=== PATIENT | male | born 1990 | race African-American/Black ===

== ENCOUNTER 2023-07-03 00:49 | Emergency (ER) | payer SELFPAY ==
[2023-07-03 00:54] VITALS: BP 166/95; PULSE 47; TEMP 36.5; O2SAT 100; BMI 33.1
[2023-07-03 00:59] VITALS: PULSE 45
--- NOTE | 2023-07-03 01:06 | CT_ITS ---
[address] [address] Patient Name: LISA GERMAIN MRN: [id number] date: 1990 Sex: M Assigned Patient Location: ER Current Patient Location: ER Accession/Order Number: [id number] Exam Date: 07/03/2023 01:28 Report Date: 07/03/2023 02:21 At the request of: LEIGH RUSSELL Procedure: CT abdomen pelvis w con EXAM: CT ABDOMEN PELVIS W CON HISTORY: Diffuse abdominal pain. COMPARISON: None. TECHNIQUE: Multiple axial CT images of the abdomen and pelvis were performed with IV contrast. 2D coronal and sagittal reformations were submitted for review. Dose reduction techniques were achieved by using automated exposure control and/or adjustment of mA and/or kV according to patient size and/or use of iterative reconstruction technique. FINDINGS: LUNGS: Mild streak-like bibasilar atelectasis. No pleural effusion. ABDOMINAL AORTA: No aortic aneurysm identified. LYMPH NODES: No retroperitoneal, mesenteric or pelvic lymphadenopathy. LIVER: Liver contour appears smooth. No focal liver parenchymal mass identified. BILIARY TREE AND GALLBLADDER: No intrahepatic or extrahepatic bile duct dilatation. Gallbladder is fluid distended without calcified gallstones. PANCREAS: Normal in size without masses or ductal dilatation. No peripancreatic inflammatory changes. SPLEEN: Normal in size without focal lesions. ADRENAL GLANDS: Normal bilaterally, without nodules. KIDNEYS/URINARY BLADDER: Kidneys enhance in a symmetric fashion. Partially duplicated left renal collecting system. Low-density cyst at the inferior pole of the left kidney measures 0.6 cm. No KUB stones or hydronephrosis identified. The urinary bladder appears unremarkable. GASTROINTESTINAL TRACT: Scattered fluid throughout nondilated small bowel. The stomach and duodenum appears unremarkable. No bowel obstruction. Appendix appears normal. PERITONEAL CAVITY AND SURFACES: No free fluid. No free intraperitoneal air. REPRODUCTIVE ORGANS: Prostate gland appears unremarkable. ABDOMINAL WALL: Noninflamed fat-containing umbilical hernia. OSSEOUS STRUCTURES: No aggressive appearing osseous lesions. No compression fracture is identified. Mild bilateral SI joint osteoarthritis. CT/CT abdomen pelvis w con IMPRESSION: 1. Scattered fluid throughout nondilated small bowel suggests enteritis or ileus. No bowel obstruction. 2. Normal CT appearance of the appendix. Electronically authenticated by: LILIANA NEGRETE Date: 07/03/2023 02:21
--- NOTE | 2023-07-03 01:06 | ECG_ITS ---
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
--- NOTE | 2023-07-03 01:07 | ED.ABDPAIN1 ---
HPI - Abdominal Pain General Chief Complaint: Abdominal Pain Stated Complaint: abd pain Time Seen by Provider: 07/03/23 00:53 Source: patient Mode of arrival: walk-in Limitations: no limitations History of Present Illness HPI narrative: 32-year-old male presents for diffuse abdominal pain which she has had for more than 24 hours. The previous day he started a dietary supplement and he took 1 capsule in the morning and 1 at night and in the evening his pain started. He threw up. No constipation or diarrhea or blood in the stool or hematemesis. Pain is continuous and moderate. Related Data Previous Rx's ?Medication ?Instructions ?Recorded dicyclomine 10 mg capsule 10 mg PO QID PRN abdominal pain 07/03/23 #20 caps ondansetron 4 mg disintegrating 4 mg PO Q6H PRN nausea and 07/03/23 tablet vomiting #20 tabs Allergies Allergy/AdvReac Type Severity Reaction Status Date / Time No Known Drug Allergies Allergy Verified 07/03/23 00:59 Review of Systems ROS Narrative A ten point review of systems is negative except as noted above. Exam Narrative Exam Narrative: Nurses note and vital signs reviewed and patient is not hypoxic. General: The patient appears well and in no apparent distress. Patient is resting comfortably on cart. Skin: Warm, dry, no pallor noted. There is no rash noted. Head: Normocephalic, atraumatic Eye: Normal conjunctiva, no drainage Ears, Nose, Mouth, and Throat: oral mucosa is moist. Nares patent. Cardiovascular: Regular Rate and Rhythm Respiratory: Patient is in no distress, no accessory muscle use, lungs are clear to auscultation, no wheezing, rales or rhonchi Back: non-tender GI: No distention or mass. He has mild diffuse tenderness. Musculoskeletal: The patient has no evidence of calf tenderness, no pitting edema, symmetrical pulses noted bilaterally Neurological: A&O, normal speech Psychiatric: Cooperative Constitutional Vital Signs, click to edit/add: Last Vital Signs Temp 97.7 F 07/03/23 00:54 Pulse 50 L 07/03/23 02:09 Resp 16 07/03/23 02:09 BP 156/93 H 07/03/23 02:09 Pulse Ox 99 07/03/23 02:09 O2 Del Method Room Air 07/03/23 02:09 Course Vital Signs Vital signs: Vital Signs Temperature 97.7 F 07/03/23 00:54 Pulse Rate 47 L 07/03/23 00:54 Respiratory Rate 16 07/03/23 00:54 Blood Pressure 166/95 H 07/03/23 00:54 Pulse Oximetry 100 07/03/23 00:54 Oxygen Delivery Method Room Air 07/03/23 00:54 Temperature 97.7 F 07/03/23 00:54 Pulse Rate 50 L 07/03/23 02:09 Respiratory Rate 16 07/03/23 02:09 Blood Pressure 156/93 H 07/03/23 02:09 Pulse Oximetry 99 07/03/23 02:09 Oxygen Delivery Method Room Air 07/03/23 02:09 MDM - Abdominal Pain MDM Narrative Medical decision making narrative: CAT scan is consistent with enteritis. Blood work is essentially normal. He will be treated symptomatically and discharged home. Treatment diagnosis and follow-up were discussed with the patient. Differential Diagnosis Differential diagnosis: Likely abdominal pain, acute appendicitis, constipation, diverticulitis, gastroenteritis, pancreatitis and small bowel obstruction Lab Data Attestation: I reviewed the patient's lab results. Labs: Lab Results 07/03/23 07/03/23 07/03/23 Range/Units 01:15 02:00 02:04 WBC 9.0 (4.0-11.0) 10^3/uL RBC 4.80 (4.70-6.10) 10^6/uL Hgb 13.9 L (14.0-18.0) g/dL Hct 41.9 L (42.0-54.0) % MCV 87.3 (80.0-94.0) fL MCH 29.0 (25.9-34.0) pg MCHC 33.2 (29.9-35.2) g/dL RDW 11.7 (11.0-15.0) % Plt Count 317 (150-450) 10^3/uL MPV 11.8 (9.5-13.5) fL Neut % (Auto) 59.7 (43.0-75.0) % Lymph % (Auto) 24.0 (20.5-60.0) % [place] % (Auto) 10.6 (1.7-12.0) % Eos % (Auto) 5.3 (0.9-7.0) % Baso % (Auto) 0.3 (0.2-2.0) % Neut # (Auto) 5.4 (1.4-6.5) 10^3/uL Lymph # (Auto) 2.2 (1.2-3.8) 10^3/uL [place] # (Auto) 1.0 H (0.3-0.8) 10^3/uL Eos # (Auto) 0.5 (0.0-0.7) 10^3/uL Baso # (Auto) 0.0 (0.0-0.1) 10^3/uL Abs Immat Gran (auto) 0.01 (0.00-0.03) 10^3/uL Imm/Tot Granulo (auto) 0.1 (0.0-0.5) % Sodium 139 (136-145) mmol/L Potassium 4.2 (3.5-5.1) mmol/L Chloride 101 (98-107) mmol/L Carbon Dioxide 30.7 (21.0-32.0) mmol/L Anion Gap 11.5 BUN 9.0 (7.0-18.0) mg/dL Creatinine 0.80 (0.70-1.30) mg/dL Est GFR ( Amer) >60 (>=60) Est GFR (Non-Af Amer) >60 (>=60) BUN/Creatinine Ratio 11.2 Glucose 109 H (74-106) mg/dL Calcium 9.5 (8.5-10.1) mg/dL Total Bilirubin 0.3 (0.2-1.0) mg/dL Direct Bilirubin 0.1 (0.0-0.2) mg/dL AST 25 (15-37) U/L ALT 38 (16-63) U/L Alkaline Phosphatase 56 (46-116) U/L Total Protein 7.4 (6.4-8.2) g/dL Albumin 3.9 (3.4-5.0) g/dL Globulin 3.5 g/dL Albumin/Globulin Ratio 1.1 Amylase 79 (25-115) U/L Lipase 39.0 (16.0-77.0) U/L Urine Color Lt. yellow (YELLOW) Urine Clarity Clear (CLEAR) Urine pH 7.5 (5.0-9.0) Ur Specific [place] 1.010 (1.005-1.025) Urine Protein Negative (NEG/TRACE) mg/dL Urine Glucose (UA) Negative (NEGATIVE) mg/dL Urine Ketones Negative (NEGATIVE) mg/dL Urine Occult Blood Negative (NEGATIVE) Urine Nitrite Negative (NEGATIVE) Urine Bilirubin Negative (NEGATIVE) Urine Urobilinogen 0.2 (0.2-1.0) EU/dL Ur Leukocyte Esterase Negative (NEGATIVE) Urine RBC None seen (0-2) #/HPF Urine WBC None seen (NONE SEEN) #/HPF Ur Squamous Epith Cells None seen (NONE/RARE) #/LPF Urine Crystals None seen (None Seen) #/HPF Urine Bacteria None seen (NONE SEEN) #/HPF Urine Casts None seen (NONE SEEN) #/LPF Urine Mucus None seen (NONE SEEN) Ur Culture Indicated? No Imaging Data CT scan - abdomen: Radiologist's impression: ITS Impressions Abdomen/Pelvis CT 07/03/23 01:06 IMPRESSION: 1. Scattered fluid throughout nondilated small bowel suggests enteritis or ileus. No bowel obstruction. 2. Normal CT appearance of the appendix. Electronically authenticated by: LILIANA NEGRETE Date: 07/03/2023 02:21 Discharge Plan Discharge Stand Alone Forms: Portal Instructions Chief Complaint: Abdominal Pain Clinical Impression: Enteritis Patient Disposition: Home, Self-Care Time of Disposition Decision: 03:06 Condition: Good Mode of Transportation: Private Vehicle Prescriptions / Home Meds: New dicyclomine 10 mg capsule 10 mg PO QID PRN (Reason: abdominal pain) Qty: 20 0RF ondansetron 4 mg tablet,disintegrating 4 mg PO Q6H PRN (Reason: nausea and vomiting) Qty: 20 0RF Print Language: Czech Instructions: Enteritis (ED) Referrals: Physician,Non-Staff, MD [Primary Care Provider] - 1 week
[2023-07-03 01:34] VITALS: PULSE 45
[2023-07-03 01:35] LABS: Basophils Percent Auto 0.3 % (0.2-2.0); Eosinophils Absolute Auto 0.5 10^3/uL (0.0-0.7); Eosinophils Percent Auto 5.3 % (0.9-7.0); Hematocrit 41.9 % (42.0-54.0); Hemoglobin 13.9 g/dL (14.0-18.0); Immature Granulocytes Abs Auto 0.01 10^3/uL (0.00-0.03); Immature Granulocytes Pct Auto 0.1 % (0.0-0.5); Lymphocytes Absolute Auto 2.2 10^3/uL (1.2-3.8); Mean Corpuscular HGB Conc 33.2 g/dL (29.9-35.2); Mean Corpuscular Volume 87.3 fL (80.0-94.0); Mean Platelet Volume 11.8 fL (9.5-13.5); Monocytes Percent Auto 10.6 % (1.7-12.0); Neutrophils Absolute Auto 5.4 10^3/uL (1.4-6.5); Neutrophils Percent Auto 59.7 % (43.0-75.0); Platelet Count 317 10^3/uL (150-450); Red Cell Distribution Width 11.7 % (11.0-15.0)
[2023-07-03] MEDS: 0.9 % SODIUM CHLORIDE 1,000 ML 1000 ML IV (01:48)
[2023-07-03 02:09] VITALS: BP 156/93; PULSE 50; O2SAT 99
[2023-07-03 02:20] LABS: Bilirubin Urine NEGATIVE (NEGATIVE); Blood Urine NEGATIVE (NEGATIVE); Clarity Urine CLEAR (CLEAR); Color Urine LT. YELLOW (YELLOW); Glucose Urine UA NEGATIVE (NEGATIVE); Ketones Urine NEGATIVE (NEGATIVE); Leukocyte Esterase Urine NEGATIVE (NEGATIVE); Nitrite Urine NEGATIVE (NEGATIVE); Protein Urine NEGATIVE (NEG/TRACE); Urobilinogen Urine 0.2 EU/dL (0.2-1.0); pH Urine 7.5 (5.0-9.0)
[2023-07-03 02:27] LABS: Bacteria Urine NONE SEEN #/HPF (NONE SEEN); Mucus Urine NONE SEEN (NONE SEEN); RBC Urine NONE SEEN #/HPF (0-2); Squamous Epithelial Cell Urine NONE SEEN #/LPF (NONE/RARE); WBC Urine NONE SEEN #/HPF (NONE SEEN)
[2023-07-03 02:28] LABS: Cast Seen? NONE SEEN #/LPF (NONE SEEN); Crystals Seen? None Seen #/HPF (None Seen); Urine Culture Indicated NO
[2023-07-03 02:33] LABS: Alanine Aminotransferase 38 U/L (16-63); Albumin Globulin Ratio 1.1; Albumin Level 3.9 g/dL (3.4-5.0); Alkaline Phosphatase 56 U/L (46-116); Amylase 79 U/L (25-115); Anion Gap 11.5; Aspartate Amino Transferase 25 U/L (15-37); BUN Creatinine Ratio 11.2; Bilirubin Direct 0.1 mg/dL (0.0-0.2); Bilirubin Total 0.3 mg/dL (0.2-1.0); Calcium 9.5 mg/dL (8.5-10.1); Carbon Dioxide 30.7 mmol/L (21.0-32.0); Chloride 101 mmol/L (98-107); Estimated GFR (African America >60 (>=60); Estimated GFR (Non-African Ame >60 (>=60); Globulin 3.5 g/dL; Glucose 109 mg/dL (74-106); Potassium 4.2 mmol/L (3.5-5.1); Sodium 139 mmol/L (136-145); Total Protein 7.4 g/dL (6.4-8.2)
[2023-07-03] MEDS: ONDANSETRON PF 4 MG/2 ML VIAL IV (03:21)
[2023-07-03] MEDS: DICYCLOMINE HCL 20 MG/2 ML VIAL IM (03:21)
[2023-07-03 03:35] VITALS: BP 149/106; PULSE 44; O2SAT 100
== END 2023-07-03 03:40 | disposition home or self-care (01) ==
PROVIDERS: Emergency Provider Emergency Medicine
DX: K52.9 Noninfective gastroenteritis and colitis, unspecified (principal)
CPT/HCPCS: 36415; 74177; 80048; 80076; 81001; 82150; 83690; 85025; 93005; 96372; 96374; 99285; J0500; Q9967

== ENCOUNTER 2023-09-13 17:03 | Emergency (ER) | payer SELFPAY ==
[2023-09-13 17:11] VITALS: BP 156/78; PULSE 90; O2SAT 97; BMI 33.9
--- NOTE | 2023-09-13 17:13 | CT_ITS ---
[facility] [address] 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 TECHNIQUE: CT neck with contrast. Axial scans with reformatted coronal sagittal images. Individualized dose reduction used for this exam. FINDINGS: Bilateral cervical adenopathy noted most extensive on the left. Largest lymph node level 2 lymph node 1.6 cm short axis. Lymph nodes enlarged throughout the left neck extending into the supraclavicular area where increased number of smaller lymph nodes are seen. Tonsils are prominent bilaterally without fluid or or abscess. Normal epiglottis. No significant airway encroachment. Normal prevertebral soft tissues. Normal-appearing parotid and submandibular glands. Normal symmetric tissues in the tongue. Lower neck demonstrates homogeneous thyroid enhancement. Normal larynx. Normal vascular enhancement. Visualized brain orbital tissues unremarkable. Mastoid middle ear cavities sinuses clear. No bone lesion. Lung apices clear.. CT/CT soft tissue neck w con IMPRESSION: 1. Bilateral cervical adenopathy more extensive on the left. Homogeneous nodes evidence with smooth margins may be reactive lymph nodes. 2. Bilateral tonsillar prominence without fluid or abscess. Electronically authenticated by: ELAINE WILSON Date: 09/13/2023 20:15
[2023-09-13] MEDS: DEXAMETHASONE SOD PHOS 10 MG/ML VIAL IV (17:29)
[2023-09-13] MEDS: 0.9 % SODIUM CHLORIDE 1,000 ML 1000 ML IV (17:29)
[2023-09-13] MEDS: KETOROLAC TROMETHAMINE 30 MG/ML VIAL IVP (17:29)
[2023-09-13 17:44] LABS: Hematocrit 39.3 % (42.0-54.0); Hemoglobin 13.6 g/dL (14.0-18.0); Mean Corpuscular HGB Conc 34.6 g/dL (29.9-35.2); Mean Corpuscular Hemoglobin 29.4 pg (25.9-34.0); Mean Corpuscular Volume 84.9 fL (80.0-94.0); Mean Platelet Volume 10.8 fL (9.5-13.5); Platelet Count 307 10^3/uL (150-450); Red Blood Count 4.63 10^6/uL (4.70-6.10); Red Cell Distribution Width 11.6 % (11.0-15.0); White Blood Count 28.9 10^3/uL (4.0-11.0)
--- NOTE | 2023-09-13 17:45 | ED.GENADUL1 ---
Documented by User: Mallorie Albert DO 09/13/23 17:47 HPI HPI - General Adult General Chief complaint: Upper Respiratory Infection Stated complaint: SORE THROAT Time Seen by Provider: 09/13/23 17:04 Source: patient Mode of arrival: walk-in Limitations: no limitations History of Present Illness HPI narrative: Patient presents ED complaining of sore throat that is worse on the left side for the past 2 days. He said it is difficult to swallow and he has a lot of pain with swallowing and states that he cannot really swallow that well. He says it feels very swollen. He denies fever. He did report an upset stomach but no cough. He denies exposure to any sort of allergen. He reports that hurts to swallow and it hurts to talk. Vital signs stable no stridor or wheezing. Related Data Home Medications ?Medication ?Instructions ?Recorded ?Confirmed No Known Home Medications 09/13/23 09/13/23 Allergies Allergy/AdvReac Type Severity Reaction Status Date / Time No Known Drug Allergies Allergy Verified 07/03/23 00:59 Opioid HPI Opioid Management Most Recent Opioid Data: Last Pain Scale 5 09/13/23 19:24 Last ED Pain Assessment 09/13/23 19:24 Last MAR Pain Assessment 09/13/23 17:29 Review of Systems ROS Status of ROS 10 or more systems reviewed and unremarkable except as noted in history and below Exam Narrative Exam Narrative: General: alert, no acute distress Cardiovascular: regular rate and rhythm, normal peripheral perfusion. Respiratory: Lungs CTA, respirations non labored. Extremities: no deformity, no trauma. Neurological: oriented x 4, LOC appropriate for age. Posterior pharynx reveals Asymmetrical swelling with the left posterior pharynx being larger and boggy here than the right. No trismus no drooling no stridor. Patient has tender cervical lymphadenopathy worse on the left. Posterior pharynx is erythematous worse on the left Constitutional Vital Signs, click to edit/add: Last Vital Signs Temp 99.4 F 09/13/23 19:28 Pulse 80 09/13/23 20:14 Resp 16 09/13/23 20:14 BP 126/62 09/13/23 20:14 Pulse Ox 98 09/13/23 20:14 O2 Del Method Room Air 09/13/23 20:14 Course Vital Signs Vital signs: Vital Signs Pulse Rate 90 09/13/23 17:11 Respiratory Rate 18 09/13/23 17:11 Blood Pressure 156/78 H 09/13/23 17:11 Pulse Oximetry 97 09/13/23 17:11 Oxygen Delivery Method Room Air 09/13/23 17:11 Temperature 99.4 F 09/13/23 19:28 Pulse Rate 80 09/13/23 20:14 Respiratory Rate 16 09/13/23 20:14 Blood Pressure 126/62 09/13/23 20:14 Pulse Oximetry 98 09/13/23 20:14 Oxygen Delivery Method Room Air 09/13/23 20:14 Medical Decision Making Lab Data Labs: Lab Results 09/13/23 09/13/23 Range/Units 17:19 17:26 WBC 28.9 H (4.0-11.0) 10^3/uL RBC 4.63 L (4.70-6.10) 10^6/uL Hgb 13.6 L (14.0-18.0) g/dL Hct 39.3 L (42.0-54.0) % MCV 84.9 (80.0-94.0) fL MCH 29.4 (25.9-34.0) pg MCHC 34.6 (29.9-35.2) g/dL RDW 11.6 (11.0-15.0) % Plt Count 307 (150-450) 10^3/uL MPV 10.8 (9.5-13.5) fL Seg Neuts % (Manual) 86.0 Lymphocytes % (Manual) 3.0 L (20.5-60.0) % Monocytes % (Manual) 11.0 (1.7-12.0) % Eosinophils % (Manual) 0.0 L (0.9-7.0) % Basophils % (Manual) 0.0 L (0.2-2.0) % Neutrophils # (Manual) 24.85 H (1.4-6.5) 10^3/uL Lymphocytes # (Manual) 0.86 L (1.20-3.80) 10^3/uL Monocytes # (Manual) 3.17 H (0.30-0.80) 10^3/uL Eosinophils # (Manual) 0.00 (0.00-0.70) 10^3/uL Basophils # (Manual) 0.00 (0.00-0.10) 10^3/uL Anisocytosis 1+ Microcytosis 1+ Sodium 136 (136-145) mmol/L Potassium 3.6 (3.5-5.1) mmol/L Chloride 99 (98-107) mmol/L Carbon Dioxide 29.7 (21.0-32.0) mmol/L Anion Gap 10.9 BUN 10.0 (7.0-18.0) mg/dL Creatinine 1.14 (0.70-1.30) mg/dL Est GFR ( Amer) >60 (>=60) Est GFR (Non-Af Amer) >60 (>=60) BUN/Creatinine Ratio 8.8 Glucose 109 H (74-106) mg/dL Lactate 1.3 (0.4-2.0) mmol/L Calcium 8.9 (8.5-10.1) mg/dL Total Bilirubin 1.0 (0.2-1.0) mg/dL AST 17 (15-37) U/L ALT 29 (16-63) U/L Alkaline Phosphatase 56 (46-116) U/L Total Protein 7.8 (6.4-8.2) g/dL Albumin 4.0 (3.4-5.0) g/dL Globulin 3.8 g/dL Albumin/Globulin Ratio 1.1 SARS-CoV-2 Ag (CV2AG) Negative (NEGATIVE) Streptococcus Screen Negative Discharge Plan Discharge Stand Alone Forms: Portal Instructions Chief Complaint: Upper Respiratory Infection Clinical Impression: Acute tonsillitis Patient Disposition: Home, Self-Care Time of Disposition Decision: 20:28 Condition: Good Prescriptions / Home Meds: No Action No Known Home Medications Print Language: Tuvaluan Referrals: Physician,Non-Staff, [Primary Care Provider] - 1 week Documented by User: Marilyn Farrell MD 09/13/23 20:30 HPI HPI - General Adult General Chief complaint: Upper Respiratory Infection Stated complaint: SORE THROAT Time Seen by Provider: 09/13/23 17:04 Related Data Home Medications ?Medication ?Instructions ?Recorded ?Confirmed No Known Home Medications 09/13/23 09/13/23 Allergies Allergy/AdvReac Type Severity Reaction Status Date / Time No Known Drug Allergies Allergy Verified 07/03/23 00:59 Opioid HPI Opioid Management Most Recent Opioid Data: Last Pain Scale 5 09/13/23 19:24 Last ED Pain Assessment 09/13/23 19:24 Last MAR Pain Assessment 09/13/23 17:29 Exam Constitutional Vital Signs, click to edit/add: Last Vital Signs Temp 99.4 F 09/13/23 19:28 Pulse 80 09/13/23 20:14 Resp 16 09/13/23 20:14 BP 126/62 09/13/23 20:14 Pulse Ox 98 09/13/23 20:14 O2 Del Method Room Air 09/13/23 20:14 Course Vital Signs Vital signs: Vital Signs Pulse Rate 90 09/13/23 17:11 Respiratory Rate 18 09/13/23 17:11 Blood Pressure 156/78 H 09/13/23 17:11 Pulse Oximetry 97 09/13/23 17:11 Oxygen Delivery Method Room Air 09/13/23 17:11 Temperature 99.4 F 09/13/23 19:28 Pulse Rate 80 09/13/23 20:14 Respiratory Rate 16 09/13/23 20:14 Blood Pressure 126/62 09/13/23 20:14 Pulse Oximetry 98 09/13/23 20:14 Oxygen Delivery Method Room Air 09/13/23 20:14 Medical Decision Making MDM Narrative Medical decision making narrative: This 32-year-old male was signed out to me at shift change. He presents for evaluation of a sore throat for the past several days. The patient was formally in [place] and recently relocated to the [facility]. He does not have a local family physician. On physical exam he was noted to have boggy tonsils with no yvonne abscess appreciated. He is not having any difficulty tolerating his secretions or speaking. He does have some anterior cervical lymphadenopathy with no nuchal rigidity. She had been medicated with Toradol, Decadron and Unasyn prior to my arrival. He was seen and evaluated. He is resting comfortably but extremely diaphoretic. I reviewed his labs. He has a markedly elevated white count. Comprehensive metabolic profile is normal. CT scan of the neck with IV contrast does not show any peritonsillar abscess but does show bilateral tonsillar prominence and bilateral cervical lymphadenopathy which appears reactive according to the radiologist read. He was given an additional dose of IV clindamycin in the emergency department. The results of the CT scan was discussed with the patient. He states he is feeling better after his treatment. He will be discharged home with prescription for a Medrol Dosepak and clindamycin and referral to outpatient family medicine. I did instruct him to return to the emergency department if he should develop a large swelling in his tonsillar area that could be an abscess or he has difficulty breathing or swallowing. He is drinking apple juice without difficulty, speech is clear and he is not having any difficulty tolerating the juice or his secretions. Medical Records Medical records narrative: [place] [address] CT Scan Report Signed Patient: LISA GERMAIN MR#: [id number] : 1990 Acct:[id number] Age/Sex: 32 / M ADM Date: 09/13/23 Loc: ER Attending Dr: Ordering Physician: Mallorie Albert D.O. 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 TECHNIQUE: CT neck with contrast. Axial scans with reformatted coronal sagittal images. Individualized dose reduction used for this exam. FINDINGS: Bilateral cervical adenopathy noted most extensive on the left. Largest lymph node level 2 lymph node 1.6 cm short axis. Lymph nodes enlarged throughout the left neck extending into the supraclavicular area where increased number of smaller lymph nodes are seen. Tonsils are prominent bilaterally without fluid or or abscess. Normal epiglottis. No significant airway encroachment. Normal prevertebral soft tissues. Normal-appearing parotid and submandibular glands. Normal symmetric tissues in the tongue. Lower neck demonstrates homogeneous thyroid enhancement. Normal larynx. Normal vascular enhancement. Visualized brain orbital tissues unremarkable. Mastoid middle ear cavities sinuses clear. No bone lesion. Lung apices clear.. CT/CT soft tissue neck w con IMPRESSION: 1. Bilateral cervical adenopathy more extensive on the left. Homogeneous nodes evidence with smooth margins may be reactive lymph nodes. 2. Bilateral tonsillar prominence without fluid or abscess. Electronically authenticated by: ELAINE WILSON Date: 09/13/2023 20:15 Lab Data Lab results reviewed: Yes I reviewed the patient's lab results Labs: Lab Results 09/13/23 09/13/23 Range/Units 17:19 17:26 WBC 28.9 H (4.0-11.0) 10^3/uL RBC 4.63 L (4.70-6.10) 10^6/uL Hgb 13.6 L (14.0-18.0) g/dL Hct 39.3 L (42.0-54.0) % MCV 84.9 (80.0-94.0) fL MCH 29.4 (25.9-34.0) pg MCHC 34.6 (29.9-35.2) g/dL RDW 11.6 (11.0-15.0) % Plt Count 307 (150-450) 10^3/uL MPV 10.8 (9.5-13.5) fL Seg Neuts % (Manual) 86.0 Lymphocytes % (Manual) 3.0 L (20.5-60.0) % Monocytes % (Manual) 11.0 (1.7-12.0) % Eosinophils % (Manual) 0.0 L (0.9-7.0) % Basophils % (Manual) 0.0 L (0.2-2.0) % Neutrophils # (Manual) 24.85 H (1.4-6.5) 10^3/uL Lymphocytes # (Manual) 0.86 L (1.20-3.80) 10^3/uL Monocytes # (Manual) 3.17 H (0.30-0.80) 10^3/uL Eosinophils # (Manual) 0.00 (0.00-0.70) 10^3/uL Basophils # (Manual) 0.00 (0.00-0.10) 10^3/uL Anisocytosis 1+ Microcytosis 1+ Sodium 136 (136-145) mmol/L Potassium 3.6 (3.5-5.1) mmol/L Chloride 99 (98-107) mmol/L Carbon Dioxide 29.7 (21.0-32.0) mmol/L Anion Gap 10.9 BUN 10.0 (7.0-18.0) mg/dL Creatinine 1.14 (0.70-1.30) mg/dL Est GFR ( Amer) >60 (>=60) Est GFR (Non-Af Amer) >60 (>=60) BUN/Creatinine Ratio 8.8 Glucose 109 H (74-106) mg/dL Lactate 1.3 (0.4-2.0) mmol/L Calcium 8.9 (8.5-10.1) mg/dL Total Bilirubin 1.0 (0.2-1.0) mg/dL AST 17 (15-37) U/L ALT 29 (16-63) U/L Alkaline Phosphatase 56 (46-116) U/L Total Protein 7.8 (6.4-8.2) g/dL Albumin 4.0 (3.4-5.0) g/dL Globulin 3.8 g/dL Albumin/Globulin Ratio 1.1 SARS-CoV-2 Ag (CV2AG) Negative (NEGATIVE) Streptococcus Screen Negative Discharge Plan Discharge Stand Alone Forms: Portal Instructions Chief Complaint: Upper Respiratory Infection Clinical Impression: Acute tonsillitis Patient Disposition: Home, Self-Care Time of Disposition Decision: 20:28 Condition: Good Prescriptions / Home Meds: No Action No Known Home Medications Print Language: Tuvaluan Referrals: Physician,Non-Staff, MD [Primary Care Provider] - 1 week
[2023-09-13 17:58] LABS: Internal Control Within Normal Limits; SARS-CoV-2 Ag NEGATIVE (NEGATIVE); Strep A Antigen Screen Negative
[2023-09-13 17:59] LABS: Alanine Aminotransferase 29 U/L (16-63); Albumin Globulin Ratio 1.1; Alkaline Phosphatase 56 U/L (46-116); Anion Gap 10.9; Aspartate Amino Transferase 17 U/L (15-37); BUN Creatinine Ratio 8.8; Calcium 8.9 mg/dL (8.5-10.1); Carbon Dioxide 29.7 mmol/L (21.0-32.0); Chloride 99 mmol/L (98-107); Estimated GFR (African America >60 (>=60); Estimated GFR (Non-African Ame >60 (>=60); Globulin 3.8 g/dL; Glucose 109 mg/dL (74-106); Potassium 3.6 mmol/L (3.5-5.1); Sodium 136 mmol/L (136-145); Total Protein 7.8 g/dL (6.4-8.2)
[2023-09-13 18:06] LABS: Anisocytosis 1+; Lymphocytes Absolute Manual 0.86 10^3/uL (1.20-3.80); Microcytosis 1+; Monocytes Absolute Manual 3.17 10^3/uL (0.30-0.80); Segmented Neut Absolute Manual 24.85 10^3/uL (1.4-6.5)
[2023-09-13] MEDS: AMPICILLIN SODIUM/SULBACTAM NA 3 GM in 0.9 % SODIUM CHLORIDE 100 ML IV (18:09)
[2023-09-13 18:13] LABS: Lactate/Lactic Acid 1.3 mmol/L (0.4-2.0)
[2023-09-13 19:28] VITALS: BP 141/75; PULSE 82; TEMP 37.4; O2SAT 98
[2023-09-13] MEDS: CLINDAMYCIN PHOSPHATE/D5W 900 MG/50 ML PIGGYBACK 100 MG IV (20:10)
[2023-09-13 20:14] VITALS: BP 126/62; PULSE 80; O2SAT 98
[2023-09-13 20:41] VITALS: BP 129/81; PULSE 82; O2SAT 97
== END 2023-09-13 20:43 | disposition home or self-care (01) ==
PROVIDERS: Emergency Medicine; Emergency Provider Emergency Medicine
DX: J03.90 Acute tonsillitis, unspecified (principal); Z20.822 Contact with and (suspected) exposure to COVID-19
CPT/HCPCS: 36415; 70491; 80053; 83605; 85007; 85027; 87040; 87070; 87811; 87880; 96365; 96367; 96375; 99285; J0295; J0736; J1100; J1885; Q9967